=== PATIENT | male | born 1960 | race Caucasian/White ===

== ENCOUNTER 2017-01-09 06:17 | Day surgery (SDC) | payer OTHER ==
[~2017-01-09] VITALS: Ht 160 cm; Wt 72.7 kg
[2017-01-09] MEDS ORDERED: glipizide (07:26)
[2017-01-09] MEDS ORDERED: aspirin (07:26)
[2017-01-09] MEDS ORDERED: naproxen (07:26)
[2017-01-09] MEDS ORDERED: [UNRECOGNIZED DRUG - OTHER] (07:26)
[2017-01-09 07:34] VITALS: Ht 160 cm; Wt 72.7 kg
[2017-01-09 07:44] VITALS: BP 124/74; PULSE 51; RESP 19
[2017-01-09] MEDS ORDERED: MIDAZOLAM 1 MG/ML 2 ML INJ ONE (08:39)
[2017-01-09] MEDS ORDERED: FENTAnyl 50 MCG/ML VIAL ONE (08:39)
[2017-01-09 09:00] VITALS: BP 121/75; PULSE 61; RESP 18
--- NOTE | 2017-01-09 11:58 | GILP ---
DATE OF PROCEDURE: 01/09/2017 NAME OF PROCEDURE: Colonoscopy. SURGEON: Keila Slaughter MD PREOPERATIVE DIAGNOSIS: Screening colonoscopy. POSTOPERATIVE DIAGNOSES 1. Colonoscopy all the way to the cecum. 2. Internal hemorrhoids. 3. No colon neoplasm was identified. INDICATION FOR THE PROCEDURE: Mr. Mark Pereyra is a 56-year-old male patient who was scheduled fo r screening colonoscopy. The procedure and possible complications are well explained to the patient. The patient understood and consented to the procedure. DESCRIPTION OF PROCEDURE: Under the influence of fentanyl and Versed, the colonoscope was carefully introduced in the rectum and under direct vision, it was advanced all the way to the cecum. FINDINGS: The patient had internal hemorrhoids. No colon neoplasm was identified. He tolerated the procedure very well and there was no complication from the procedure. At the end o f the procedure, he was awake with stable vital signs and he was discharged home to the care of his family. IMPRESSION: 1. Colonoscopy all the way to the cecum. 2. Internal hemorrhoids. 3. No colon neoplasm was identified. PLAN: Next screening colonoscopy in 10 years. Dictated By: KEILA BOLTON/TREY Conf#: [id number] DID#: [id number] CC: KEILA SLAUGHTER MD;*EndCC*
== END 2017-01-09 11:32 | disposition home or self-care (01) ==
LOC: GIL 06:17
PROVIDERS: ATTEND Internal Medicine Gastroenterology
DX: Z12.11 Encounter for screening for malignant neoplasm of colon (principal); K64.8 Other hemorrhoids; E11.9 Type 2 diabetes mellitus without complications
CPT/HCPCS: 45378; J2250; J3010; Z7610